=== PATIENT | male | born 1970 | race African-American/Black ===

== ENCOUNTER 2023-12-11 23:33 | Emergency (ER) | payer OTHER | END 2023-12-12 03:16 | disposition home or self-care (01) | LOC: CSHERS 23:33 | DX: J18.9 Pneumonia, unspecified organism (principal); J98.01 Acute bronchospasm | CPT/HCPCS: 71045; 80053; 82550; 83605; 83880; 84484; 85025; 85379; 93005; 94640; 94760; 96360; J7620; J8540 ==